=== PATIENT | male | born 1990 | race Caucasian/White ===

== ENCOUNTER 2017-03-03 14:57 | Emergency (ER) | payer MEDICAID ==
[~2017-03-03] VITALS: Ht 172.7 cm; Wt 70.0 kg
[2017-03-03] MEDS ORDERED: SODIUM CHLORIDE 0.9% 1,000 ML IV ONE ×2 (15:24→21:30)
[2017-03-03] MEDS ORDERED: LORAZEPAM 2MG/ML CPJ IV STA (15:24)
[2017-03-03] MEDS ORDERED: DILTIAZEM HCL 5MG/ML 5ML VIAL IV ONE (15:30)
[2017-03-03 15:44] LABS: BASOPHILS % 0.2 % (0.0-2.0); EOSINOPHILS % 0.1 % (0.0-5.0); HEMATOCRIT. 43.7 % (42.0-52.0); LYMPHOCYTES % 20.2 % (20.0-50.0); MEAN CORPUSCULAR HEMOGLOBIN 30.9 pg (28.0-32.0); MEAN CORPUSCULAR VOLUME 89.7 fL (80.0-94.0); MEAN PLATELET VOLUME 7.2 fl (7.4-10.4); MONOCYTES % 7.9 % (2.0-8.0); NEUTROPHILS % 71.6 % (40.0-76.0); PLATELET 297 x1000/uL (130-400); RED BLOOD CELL COUNT 4.86 mill/uL (4.7-6.1); RED CELL DISTRIBUTION WIDTH 15.4 % (11.6-14.6)
[2017-03-03 15:49] LABS: CHLORIDE 96 mEq/L (98-107)
[2017-03-03 15:58] LABS: CARBON DIOXIDE 20 mEq/L (21-32); ETHANOL BLOOD < 10 mg/dL
[2017-03-03 16:54] LABS: CLARITY URINE CLEAR (CLEAR); COLOR URINE YELLOW (YELLOW); GLUCOSE URINE NEGATIVE (NEGATIVE); KETONES URINE TRACE (NEGATIVE); LEUKOCYTE ESTERASE URINE NEGATIVE (NEGATIVE); NITRITE URINE NEGATIVE (NEGATIVE); OCCULT BLOOD URINE NEGATIVE (NEGATIVE); PH URINE 8.5 (4.5-8.0); PROTEIN URINE NEGATIVE (NEGATIVE); SPECIFIC GRAVITY URINE 1.012 (1.005-1.030); UROBILINOGEN URINE 0.2 E.U./dL (0.2-1.0)
[2017-03-03 17:04] LABS: *AMPHETAMINES SCREEN URINE PRESUMTIVE POSITIVE (NEGATIVE); *BARBITURATES SCREEN URINE NEGATIVE (NEGATIVE); *BENZODIAZEPINES SCREEN URINE NEGATIVE (NEGATIVE); *COCAINE SCREEN URINE NEGATIVE (NEGATIVE); CANNABINOID URINE SCREEN NEGATIVE (NEGATIVE); METHADONE URINE SCREEN NEGATIVE (NEGATIVE); OPIATES URINE SCREEN NEGATIVE (NEGATIVE); PHENCYCLIDINE URINE SCREEN NEGATIVE (NEGATIVE)
[2017-03-03] MEDS ORDERED: POTASSIUM CHLORIDE 20MEQ TABLET SR PO ONE ×2 (17:15)
[2017-03-03 19:02] LABS: CARBON DIOXIDE 26 mEq/L (21-32); CHLORIDE 104 mEq/L (98-107)
[2017-03-03 22:42] VITALS: BP 138/78
== END 2017-03-03 22:44 | disposition home or self-care (01) ==
LOC: ER 15:17
DX: T43.625A Adverse effect of amphetamines, initial encounter (principal); Y92.9 Unspecified place or not applicable; F15.90 Other stimulant use, unspecified, uncomplicated; F41.9 Anxiety disorder, unspecified
CPT/HCPCS: 36415; 71010; 80048; 80053; 80305; 81003; 85025; 93005; 96361; 96374; 96375; 99285; G0482; J2060; J3490; J7030; Z7610

== ENCOUNTER 2017-04-05 05:27 | Emergency (ER) | payer MEDICAID ==
[~2017-04-05] VITALS: Ht 160 cm; Wt 59.0 kg
[2017-04-05 05:29] VITALS: BP 104/67
== END 2017-04-05 05:51 | disposition left against medical advice (07) ==
LOC: ER 05:29
DX: F10.129 Alcohol abuse with intoxication, unspecified (principal); Z53.21 Procedure and treatment not carried out due to patient leaving prior to being seen by health care provider

== ENCOUNTER 2017-04-20 20:11 | Emergency (ER) | payer MEDICAID ==
[~2017-04-20] VITALS: Ht 160 cm; Wt 65.0 kg
[2017-04-20 21:10] LABS: BASOPHILS % 0.2 % (0.0-2.0); EOSINOPHILS % 0.1 % (0.0-5.0); HEMATOCRIT. 42.6 % (42.0-52.0); HEMOGLOBIN. 14.3 g/dL (14.0-18.0); MEAN CORPUSCULAR HEMOGLOBIN 30.9 pg (28.0-32.0); MEAN PLATELET VOLUME 6.7 fl (7.4-10.4); MONOCYTES % 9.1 % (2.0-8.0); NEUTROPHILS % 79.6 % (40.0-76.0); PLATELET 203 x1000/uL (130-400); RED BLOOD CELL COUNT 4.63 mill/uL (4.7-6.1); RED CELL DISTRIBUTION WIDTH 15.4 % (11.6-14.6)
[2017-04-20 21:17] LABS: CHLORIDE 100 mEq/L (98-107)
[2017-04-20 21:21] LABS: CARBON DIOXIDE 28 mEq/L (21-32)
[2017-04-20 21:23] LABS: ETHANOL BLOOD < 10 mg/dL
[2017-04-20 21:25] LABS: *AMPHETAMINES SCREEN URINE NEGATIVE (NEGATIVE); *BARBITURATES SCREEN URINE NEGATIVE (NEGATIVE); *BENZODIAZEPINES SCREEN URINE NEGATIVE (NEGATIVE); *COCAINE SCREEN URINE NEGATIVE (NEGATIVE); CANNABINOID URINE SCREEN NEGATIVE (NEGATIVE); METHADONE URINE SCREEN NEGATIVE (NEGATIVE); OPIATES URINE SCREEN NEGATIVE (NEGATIVE); PHENCYCLIDINE URINE SCREEN NEGATIVE (NEGATIVE)
[2017-04-20] MEDS ORDERED: ACETAMINOPHEN 325MG TABLET PO ONE (22:45)
[2017-04-20 23:20] VITALS: BP 136/92
== END 2017-04-20 23:35 | disposition home or self-care (01) ==
LOC: ER 20:25
DX: R56.9 Unspecified convulsions (principal); R51 Headache; I10 Essential (primary) hypertension; F17.200 Nicotine dependence, unspecified, uncomplicated; F14.10 Cocaine abuse, uncomplicated; F15.10 Other stimulant abuse, uncomplicated
CPT/HCPCS: 36415; 70450; 80053; 80305; 85025; 99285; G0482; Z7610

== ENCOUNTER 2017-06-06 18:19 | Inpatient (IN) | payer MEDICAID ==
[~2017-06-06] VITALS: Ht 170.2 cm; Wt 49.6 kg
[2017-06-06] MEDS ORDERED: SODIUM CHLORIDE 0.9% 1000ML BAG (SEPSIS BOLUS) IV ONE (18:45)
[2017-06-06] MEDS ORDERED: LORAZEPAM 2MG/ML CPJ IV ONE (18:45)
[2017-06-06 19:19] LABS: BASOPHILS % 0.4 % (0.0-2.0); EOSINOPHILS % 0.2 % (0.0-5.0); HEMATOCRIT. 45.8 % (42.0-52.0); HEMOGLOBIN. 16.2 g/dL (14.0-18.0); LYMPHOCYTES % 15.8 % (20.0-50.0); MEAN CORPUSCULAR HEMOGLOBIN 31.7 pg (28.0-32.0); MEAN CORPUSCULAR VOLUME 89.7 fL (80.0-94.0); MEAN PLATELET VOLUME 7.3 fl (7.4-10.4); MONOCYTES % 9.6 % (2.0-8.0); PLATELET 216 x1000/uL (130-400); RED BLOOD CELL COUNT 5.11 mill/uL (4.7-6.1); RED CELL DISTRIBUTION WIDTH 13.5 % (11.6-14.6)
[2017-06-06 19:23] LABS: INR 1.2
[2017-06-06 19:36] LABS: CHLORIDE 97 mEq/L (98-107); ETHANOL BLOOD < 10 mg/dL; TROPONIN I < 0.02 ng/mL (0.00-0.04)
[2017-06-06 19:54] LABS: CLARITY URINE CLOUDY (CLEAR); COLOR URINE YELLOW (YELLOW); KETONES URINE 2+ (NEGATIVE); LEUKOCYTE ESTERASE URINE TRACE (NEGATIVE); NITRITE URINE NEGATIVE (NEGATIVE); OCCULT BLOOD URINE NEGATIVE (NEGATIVE); PH URINE >=9.0 (4.5-8.0); PROTEIN URINE NEGATIVE (NEGATIVE); SPECIFIC GRAVITY URINE 1.016 (1.005-1.030)
[2017-06-06 20:13] LABS: *AMPHETAMINES SCREEN URINE PRESUMTIVE POSITIVE (NEGATIVE); *BARBITURATES SCREEN URINE NEGATIVE (NEGATIVE); *BENZODIAZEPINES SCREEN URINE NEGATIVE (NEGATIVE); *COCAINE SCREEN URINE NEGATIVE (NEGATIVE); CANNABINOID URINE SCREEN NEGATIVE (NEGATIVE); METHADONE URINE SCREEN NEGATIVE (NEGATIVE); OPIATES URINE SCREEN NEGATIVE (NEGATIVE); PHENCYCLIDINE URINE SCREEN NEGATIVE (NEGATIVE)
[2017-06-06] MEDS ORDERED: LEVETIRACETAM 1000MG/100ML 100 ML IV ONE (20:45)
[2017-06-06] MEDS ORDERED: HYDRALAZINE 20MG/ML VIAL IV ONE (22:15)
[2017-06-06] MEDS ORDERED: NICARDIPINE 40MG/200ML PREMIX 200 ML IV ONE (23:02)
[2017-06-06] MEDS ORDERED: LORAZEPAM 2MG/ML CPJ IV PRN (23:15)
[2017-06-06] MEDS ORDERED: CLONIDINE 0.1MG TABLET PO PRN (23:15)
[2017-06-06] MEDS ORDERED: IPRATROPIUM/ALBUTEROL 0.5-3(2.5)MG/3ML NEB INH PRN (23:15)
[2017-06-06] MEDS ORDERED: MAGNESIUM/ALUMINUM HYDROXIDE/SIMETHICONE 30ML UDC PO PRN (23:15)
[2017-06-06] MEDS ORDERED: HYDROCODONE/ACETAMINOPHEN 5/325MG TABLET PO PRN (23:15)
[2017-06-06] MEDS ORDERED: ACETAMINOPHEN 325MG TABLET PO PRN (23:15)
[2017-06-06] MEDS ORDERED: ONDANSETRON HCL 4MG/2ML VIAL IV PRN (23:15)
[2017-06-06] MEDS ORDERED: DOCUSATE SODIUM 100MG CAPSULE PO PRN (23:15)
[2017-06-06 23:55] LABS: CHLORIDE 102 mEq/L (98-107)
[2017-06-07] VITALS (22 sets, daily range): BP systolic 60–171; BP diastolic 19–123
[2017-06-07] MEDS ORDERED: TRAZ-129 PO (01:22)
[2017-06-07] MEDS ORDERED: GABA-531 PO (01:22)
[2017-06-07] MEDS ORDERED: LEVE500T19 PO (01:22)
[2017-06-07] MEDS ORDERED: TRAZODONE HCL 50MG TABLET PO PRN (03:30)
[2017-06-07 05:47] LABS: BASOPHILS % 0.2 % (0.0-2.0); EOSINOPHILS % 0.3 % (0.0-5.0); HEMATOCRIT. 41.8 % (42.0-52.0); HEMOGLOBIN. 14.5 g/dL (14.0-18.0); LYMPHOCYTES % 18.1 % (20.0-50.0); MEAN CORPUSCULAR HEMOGLOBIN 31.2 pg (28.0-32.0); MEAN CORPUSCULAR VOLUME 90.1 fL (80.0-94.0); MEAN PLATELET VOLUME 7.5 fl (7.4-10.4); MONOCYTES % 9.8 % (2.0-8.0); NEUTROPHILS % 71.6 % (40.0-76.0); PLATELET 181 x1000/uL (130-400); RED BLOOD CELL COUNT 4.64 mill/uL (4.7-6.1); RED CELL DISTRIBUTION WIDTH 13.9 % (11.6-14.6)
[2017-06-07 06:24] LABS: CREATINE KINASE MB FRACTION 2.6 ng/mL (0.5-3.6)
[2017-06-07] MEDS ORDERED: GABAPENTIN 300MG CAPSULE PO SCH (09:00)
[2017-06-07] MEDS ORDERED: LEVETIRACETAM 500MG TABLET PO SCH (09:00)
[2017-06-07] MEDS ORDERED: BUDESONIDE 0.5MG/2ML NEB HHN SCH (09:00)
[2017-06-07] MEDS ORDERED: LEVETIRACETAM 500MG/5ML CUP PO SCH (09:00)
[2017-06-07] MEDS ORDERED: AMLO5TAB88 PO (12:45)
[2017-06-08] MEDS ORDERED: AMLODIPINE 5MG TABLET PO SCH (09:00)
== END 2017-06-07 12:40 | disposition home or self-care (01) | DRG 812 ==
LOC: ER 18:33 → MICUNO 18:34 → EDBEDREQTM 22:21 → EDBEDREQSVC 22:21 → EDBEDREQ 22:21 → ENRESERV 22:39 → EDBEDREQ 23:10 → EDBEDREQTM 23:10 → EDBEDREQSVC 23:10 → ENRESERV 23:19 → MICUNO 06-07 00:50
PROVIDERS: ADMIT Internal Medicine; ATTEND Internal Medicine
DX: T43.621A Poisoning by amphetamines, accidental (unintentional), initial encounter (principal); R65.10 Systemic inflammatory response syndrome (SIRS) of non-infectious origin without acute organ dysfunction; I10 Essential (primary) hypertension; F17.210 Nicotine dependence, cigarettes, uncomplicated; G40.909 Epilepsy, unspecified, not intractable, without status epilepticus; F19.10 Other psychoactive substance abuse, uncomplicated; Z87.820 Personal history of traumatic brain injury; Z79.899 Other long term (current) drug therapy; Y92.89 Other specified places as the place of occurrence of the external cause; R73.9 Hyperglycemia, unspecified
CPT/HCPCS: 36415; 70450; 71045; 80048; 80053; 80061; 80305; 81001; 82550; 82553; 83605; 83690; 83880; 84443; 84484; 85025; 85610; 87040; 87086; 93005; 93970; 94640; 96361; 96365; 96375; 99291; G0482; J0360; J1953; J2060; J7030; J7620; J7626

== ENCOUNTER 2017-11-24 23:07 | Emergency (ER) | payer MEDICAID ==
[~2017-11-24] VITALS: Ht 160 cm; Wt 59.0 kg
[~2017-11-24 23:07] MED LIST: AMLO5TAB88 PO; GABA-531 PO; LEVE500T19 PO; TRAZ-212 PO
[2017-11-25 00:01] VITALS: BP 157/86
== END 2017-11-25 06:14 | disposition left against medical advice (07) ==
LOC: ER 23:07
DX: Z53.21 Procedure and treatment not carried out due to patient leaving prior to being seen by health care provider (principal)

== ENCOUNTER 2017-11-29 19:01 | Emergency (ER) | payer MEDICAID ==
[~2017-11-29] VITALS: Ht 162.6 cm; Wt 59.0 kg
[2017-11-29 20:14] VITALS: BP 127/74
== END 2017-11-29 21:41 | disposition left against medical advice (07) ==
LOC: ER 19:01
DX: S61.012A Laceration without foreign body of left thumb without damage to nail, initial encounter (principal); X58.XXXA Exposure to other specified factors, initial encounter; Y93.89 Activity, other specified; Y92.89 Other specified places as the place of occurrence of the external cause; Y99.8 Other external cause status; Z53.21 Procedure and treatment not carried out due to patient leaving prior to being seen by health care provider

== ENCOUNTER 2018-06-23 14:59 | Emergency (ER) | payer MEDICAID ==
[~2018-06-23] VITALS: Ht 162.6 cm; Wt 55.0 kg
[2018-06-23 17:40] VITALS: BP 127/89
== END 2018-06-23 23:50 | disposition left against medical advice (07) ==
LOC: ER 14:59
DX: Z53.21 Procedure and treatment not carried out due to patient leaving prior to being seen by health care provider (principal)

== ENCOUNTER 2018-06-29 10:20 | Emergency (ER) | payer MEDICAID ==
[~2018-06-29] VITALS: Ht 172.7 cm; Wt 70.0 kg
[2018-06-29 11:34] LABS: BASOPHILS % 0.3 % (0.0-2.0); EOSINOPHILS % 0.7 % (0.0-5.0); HEMATOCRIT. 45.9 % (42.0-52.0); HEMOGLOBIN. 15.9 g/dL (14.0-18.0); LYMPHOCYTES % 14.3 % (20.0-50.0); MEAN CORPUSCULAR HEMOGLOBIN 32.4 pg (28.0-32.0); MEAN CORPUSCULAR VOLUME 93.7 fL (80.0-94.0); MEAN PLATELET VOLUME 7.4 fl (7.4-10.4); MONOCYTES % 9.6 % (2.0-8.0); NEUTROPHILS % 75.1 % (40.0-76.0); PLATELET 234 x1000/uL (130-400); RED BLOOD CELL COUNT 4.89 mill/uL (4.7-6.1)
[2018-06-29 11:38] LABS: CHLORIDE 104 mEq/L (98-107)
[2018-06-29 11:42] LABS: ETHANOL BLOOD < 10 mg/dL
[2018-06-29 11:44] LABS: PHOSPHORUS 2.3 mg/dL (2.5-4.9)
[2018-06-29] MEDS ORDERED: ONDANSETRON HCL 4MG/2ML INJ IV ONE (11:45)
[2018-06-29] MEDS ORDERED: ACETAMINOPHEN 325MG TABLET PO ONE (11:45)
[2018-06-29] MEDS ORDERED: GABAPENTIN 300MG CAPSULE PO ONE (12:30)
[2018-06-29] MEDS ORDERED: LEVETIRACETAM 1000MG/100ML 100 ML IV ONE (12:30)
[2018-06-29 12:40] LABS: CLARITY URINE CLEAR (CLEAR); COLOR URINE YELLOW (YELLOW); KETONES URINE TRACE (NEGATIVE); LEUKOCYTE ESTERASE URINE TRACE (NEGATIVE); NITRITE URINE NEGATIVE (NEGATIVE); OCCULT BLOOD URINE TRACE (NEGATIVE); PROTEIN URINE 1+ (NEGATIVE); SPECIFIC GRAVITY URINE 1.018 (1.005-1.030); UROBILINOGEN URINE 0.2 E.U./dL (0.2-1.0)
[2018-06-29 13:05] LABS: *AMPHETAMINES SCREEN URINE NEGATIVE (NEGATIVE); *BARBITURATES SCREEN URINE NEGATIVE (NEGATIVE); *BENZODIAZEPINES SCREEN URINE NEGATIVE (NEGATIVE); *COCAINE SCREEN URINE NEGATIVE (NEGATIVE)
[2018-06-29 13:06] LABS: CANNABINOID URINE SCREEN NEGATIVE (NEGATIVE); METHADONE URINE SCREEN NEGATIVE (NEGATIVE); OPIATES URINE SCREEN NEGATIVE (NEGATIVE); PHENCYCLIDINE URINE SCREEN NEGATIVE (NEGATIVE)
[2018-06-29 15:25] VITALS: BP 117/87
== END 2018-06-29 15:43 | disposition home or self-care (01) ==
LOC: ER 10:27
DX: R56.9 Unspecified convulsions (principal)
CPT/HCPCS: 36415; 70450; 80053; 80305; 80320; 81003; 82962; 83735; 84100; 85025; 87086; 96365; 96375; 99284; J1953; J2405; G0480

== ENCOUNTER 2019-11-27 20:52 | Emergency (ER) | payer MEDICAID ==
[~2019-11-27] VITALS: Ht 165.1 cm; Wt 70.0 kg
[~2019-11-27 20:52] MED LIST changes: -TRAZ-212 PO; +TRAZ-251 PO
[2019-11-27 20:56] VITALS: BP 100/70
[2019-11-27] MEDS ORDERED: LORAZEPAM 2MG/ML CPJ IV ONE (21:30)
[2019-11-27] MEDS ORDERED: LEVETIRACETAM 1000MG/100ML 100 ML IV ONE (21:30)
[2019-11-27 21:35] LABS: BASOPHILS % 0.2 % (0.0-2.0); EOSINOPHILS % 0.3 % (0.0-5.0); HEMATOCRIT. 44.6 % (42.0-52.0); HEMOGLOBIN. 15.6 g/dL (14.0-18.0); MEAN CORPUSCULAR VOLUME 94.5 fL (80.0-94.0); MEAN PLATELET VOLUME 6.3 fl (7.4-10.4); NEUTROPHILS % 68.5 % (40.0-76.0); PLATELET 249 x1000/uL (130-400); RED BLOOD CELL COUNT 4.72 mill/uL (4.7-6.1); RED CELL DISTRIBUTION WIDTH 13.3 % (11.6-14.6)
[2019-11-27 21:40] LABS: CHLORIDE 104 mEq/L (98-107)
[2019-11-27 21:45] LABS: ETHANOL BLOOD 277 mg/dL
== END 2019-11-27 22:30 | disposition left against medical advice (07) ==
LOC: ER 20:52
DX: R56.9 Unspecified convulsions (principal); F10.129 Alcohol abuse with intoxication, unspecified; Z79.899 Other long term (current) drug therapy; Z98.890 Other specified postprocedural states; Y90.8 Blood alcohol level of 240 mg/100 ml or more
CPT/HCPCS: 36415; 80053; 80305; 80320; 81003; 85025; 93005; 99284; G0480

== ENCOUNTER 2020-03-15 19:55 | Emergency (ER) | payer MEDICAID ==
[~2020-03-15] VITALS: Ht 160 cm; Wt 75.0 kg
[2020-03-15] MEDS ORDERED: SODIUM CHLORIDE 0.9% 1,000 ML IV ONE (22:45)
[2020-03-15 23:53] LABS: BASOPHILS % 0.3 % (0.0-2.0); EOSINOPHILS % 0.6 % (0.0-5.0); HEMATOCRIT. 37.4 % (42.0-52.0); HEMOGLOBIN. 12.7 g/dL (14.0-18.0); LYMPHOCYTES % 14.3 % (20.0-50.0); MEAN CORPUSCULAR HEMOGLOBIN 31.4 pg (28.0-32.0); MEAN CORPUSCULAR VOLUME 92.3 fL (80.0-94.0); MEAN PLATELET VOLUME 6.8 fl (7.4-10.4); MONOCYTES % 8.5 % (2.0-8.0); NEUTROPHILS % 76.3 % (40.0-76.0); PLATELET 227 x1000/uL (130-400); RED BLOOD CELL COUNT 4.05 mill/uL (4.7-6.1); RED CELL DISTRIBUTION WIDTH 12.7 % (11.6-14.6)
[2020-03-16 00:01] LABS: CHLORIDE 107 mEq/L (98-107)
[2020-03-16 00:06] LABS: ETHANOL BLOOD < 10 mg/dL
[2020-03-16 00:10] LABS: CREATINE KINASE 114 IU/L (39-308)
[2020-03-16 00:29] LABS: CARBAMAZEPINE < 0.5 ug/mL (4-12); PHENOBARBITAL < 2.1 ug/mL (15.0-40.0); VALPROIC ACID < 3.0 ug/mL (50-100)
[2020-03-16 02:18] LABS: CLARITY URINE CLEAR (CLEAR); COLOR URINE YELLOW (YELLOW); KETONES URINE TRACE (NEGATIVE); LEUKOCYTE ESTERASE URINE NEGATIVE (NEGATIVE); NITRITE URINE NEGATIVE (NEGATIVE); OCCULT BLOOD URINE NEGATIVE (NEGATIVE); PROTEIN URINE TRACE (NEGATIVE); SPECIFIC GRAVITY URINE 1.023 (1.005-1.030)
[2020-03-16 02:27] LABS: *AMPHETAMINES SCREEN URINE NEGATIVE (NEGATIVE); *BARBITURATES SCREEN URINE NEGATIVE (NEGATIVE); *BENZODIAZEPINES SCREEN URINE NEGATIVE (NEGATIVE); *COCAINE SCREEN URINE NEGATIVE (NEGATIVE); CANNABINOID URINE SCREEN PRESUMTIVE POSITIVE (NEGATIVE); METHADONE URINE SCREEN NEGATIVE (NEGATIVE); OPIATES URINE SCREEN NEGATIVE (NEGATIVE); PHENCYCLIDINE URINE SCREEN NEGATIVE (NEGATIVE)
[2020-03-16 02:33] VITALS: BP 117/74
[2020-03-16] MEDS ORDERED: LEVETIRACETAM 500MG TABLET PO SCH (09:00)
== END 2020-03-16 02:37 | disposition home or self-care (01) ==
LOC: ER 19:55
DX: R56.9 Unspecified convulsions (principal); Z91.14 Patient's other noncompliance with medication regimen; Z98.890 Other specified postprocedural states
CPT/HCPCS: 36415; 70450; 71045; 80053; 80156; 80165; 80184; 80185; 80305; 80320; 81003; 82140; 82550; 82962; 83605; 83690; 84443; 84484; 85025; 86850; 86900; 86901; 93005; 99285; J7030; G0480

== ENCOUNTER 2020-11-22 07:51 | Emergency (ER) | payer MEDICAID ==
[~2020-11-22] VITALS: Ht 167.6 cm; Wt 55.0 kg
[~2020-11-22 07:51] MED LIST changes: -GABA-531 PO; +GABA-532 PO
[2020-11-22] MEDS ORDERED: LORAZEPAM 2MG/ML CPJ IV ONE (08:15)
[2020-11-22] MEDS ORDERED: SODIUM CHLORIDE 0.9% 1,000 ML IV ONE (08:15)
[2020-11-22] MEDS ORDERED: LEVETIRACETAM 500MG TABLET PO ONE (08:15)
[2020-11-22] MEDS ORDERED: ACETAMINOPHEN 325MG TABLET PO SCH (08:30)
[2020-11-22 09:57] LABS: BASOPHILS % 0.2 % (0.0-2.0); EOSINOPHILS % 0.1 % (0.0-5.0); HEMATOCRIT. 36.6 % (42.0-52.0); HEMOGLOBIN. 12.2 g/dL (14.0-18.0); LYMPHOCYTES % 10.5 % (20.0-50.0); MEAN CORPUSCULAR HEMOGLOBIN 30.6 pg (28.0-32.0); MEAN CORPUSCULAR VOLUME 91.7 fL (80.0-94.0); MEAN PLATELET VOLUME 7.2 fl (7.4-10.4); MONOCYTES % 6.8 % (2.0-8.0); NEUTROPHILS % 82.4 % (40.0-76.0); PLATELET 218 x1000/uL (130-400); RED BLOOD CELL COUNT 3.99 mill/uL (4.7-6.1); RED CELL DISTRIBUTION WIDTH 15.2 % (11.6-14.6)
[2020-11-22 10:02] LABS: CLARITY URINE CLEAR (CLEAR); COLOR URINE YELLOW (YELLOW); KETONES URINE NEGATIVE (NEGATIVE); LEUKOCYTE ESTERASE URINE NEGATIVE (NEGATIVE); NITRITE URINE NEGATIVE (NEGATIVE); OCCULT BLOOD URINE NEGATIVE (NEGATIVE); PROTEIN URINE NEGATIVE (NEGATIVE); SPECIFIC GRAVITY URINE 1.011 (1.005-1.030)
[2020-11-22 10:05] LABS: CHLORIDE 110 mEq/L (98-107)
[2020-11-22 10:09] LABS: ETHANOL BLOOD < 10 mg/dL
[2020-11-22 10:47] LABS: METHADONE URINE SCREEN NEGATIVE (NEGATIVE); OPIATES URINE SCREEN NEGATIVE (NEGATIVE)
[2020-11-22 10:48] LABS: *AMPHETAMINES SCREEN URINE NEGATIVE (NEGATIVE); *BARBITURATES SCREEN URINE NEGATIVE (NEGATIVE); *BENZODIAZEPINES SCREEN URINE NEGATIVE (NEGATIVE); *COCAINE SCREEN URINE NEGATIVE (NEGATIVE); CANNABINOID URINE SCREEN PRESUMTIVE POSITIVE (NEGATIVE); PHENCYCLIDINE URINE SCREEN NEGATIVE (NEGATIVE)
[2020-11-22] MEDS ORDERED: KEPP500 MT (11:32)
[2020-11-22 13:59] VITALS: BP 128/83
== END 2020-11-22 14:23 | disposition home or self-care (01) ==
LOC: ER 08:14
DX: R51.9 Headache, unspecified (principal); F17.200 Nicotine dependence, unspecified, uncomplicated; F12.10 Cannabis abuse, uncomplicated; Z13.9 Encounter for screening, unspecified; Z98.890 Other specified postprocedural states; Z91.14 Patient's other noncompliance with medication regimen
CPT/HCPCS: 36415; 71045; 80053; 80305; 80320; 81003; 82962; 85025; 96361; 96374; 99284; J2060; J7030; G0480

== ENCOUNTER 2020-12-24 16:37 | Emergency (ER) | payer MEDICAID ==
[~2020-12-24] VITALS: Ht 167.6 cm; Wt 70.0 kg
[~2020-12-24 16:37] MED LIST changes: +KEPP500 MT
[2020-12-24] MEDS ORDERED: TETANUS, DIPHTHERIA, PERTUSSIS VAC/PF 0.5ML (>7YR OLD) IM ONE (17:00)
[2020-12-24 17:32] LABS: BASOPHILS % 0.3 % (0.0-2.0); EOSINOPHILS % 0.1 % (0.0-5.0); HEMATOCRIT. 37.7 % (42.0-52.0); HEMOGLOBIN. 12.9 g/dL (14.0-18.0); LYMPHOCYTES % 12.9 % (20.0-50.0); MEAN CORPUSCULAR HEMOGLOBIN 31.7 pg (28.0-32.0); MEAN CORPUSCULAR VOLUME 92.2 fL (80.0-94.0); MEAN PLATELET VOLUME 7.1 fl (7.4-10.4); MONOCYTES % 8.4 % (2.0-8.0); NEUTROPHILS % 78.3 % (40.0-76.0); PLATELET 237 x1000/uL (130-400); RED BLOOD CELL COUNT 4.08 mill/uL (4.7-6.1); RED CELL DISTRIBUTION WIDTH 14.5 % (11.6-14.6)
[2020-12-24 17:38] LABS: CHLORIDE 106 mEq/L (98-107)
[2020-12-24 18:08] LABS: ETHANOL BLOOD 303 mg/dL
[2020-12-24 19:37] LABS: *BENZODIAZEPINES SCREEN URINE NEGATIVE (NEGATIVE); *COCAINE SCREEN URINE NEGATIVE (NEGATIVE); METHADONE URINE SCREEN NEGATIVE (NEGATIVE)
[2020-12-24 19:39] LABS: *AMPHETAMINES SCREEN URINE PRESUMTIVE POSITIVE (NEGATIVE); *BARBITURATES SCREEN URINE NEGATIVE (NEGATIVE); CANNABINOID URINE SCREEN PRESUMTIVE POSITIVE (NEGATIVE); OPIATES URINE SCREEN NEGATIVE (NEGATIVE); PHENCYCLIDINE URINE SCREEN NEGATIVE (NEGATIVE)
[2020-12-24 23:36] VITALS: BP 121/72
== END 2020-12-25 00:09 | disposition home or self-care (01) ==
LOC: ER 16:37
DX: M79.89 Other specified soft tissue disorders (principal); R51.9 Headache, unspecified; F12.10 Cannabis abuse, uncomplicated; Z98.890 Other specified postprocedural states; Z79.899 Other long term (current) drug therapy
CPT/HCPCS: 36415; 73080; 73090; 80048; 80305; 80320; 85025; 90471; 90715; 93971; 99285; G0480

== ENCOUNTER 2021-01-03 18:37 | Emergency (ER) | payer MEDICAID ==
[~2021-01-03] VITALS: Ht 162.6 cm; Wt 59.0 kg
[2021-01-03 23:27] VITALS: BP 133/56
[2021-01-04] MEDS ORDERED: KEPP500 PO (07:43)
== END 2021-01-03 23:33 | disposition home or self-care (01) ==
LOC: ER 18:37
DX: G92 Toxic encephalopathy (principal); T51.0X1A Toxic effect of ethanol, accidental (unintentional), initial encounter; F12.10 Cannabis abuse, uncomplicated; F14.10 Cocaine abuse, uncomplicated; F17.200 Nicotine dependence, unspecified, uncomplicated; Z86.59 Personal history of other mental and behavioral disorders; Z86.73 Personal history of transient ischemic attack (TIA), and cerebral infarction without residual deficits; Z98.890 Other specified postprocedural states; Y92.9 Unspecified place or not applicable
CPT/HCPCS: 82962; 99283

== ENCOUNTER 2021-01-04 07:24 | Emergency (ER) | payer MEDICAID ==
[~2021-01-04] VITALS: Ht 160 cm; Wt 60.0 kg
[2021-01-04 07:33] VITALS: BP 133/96
[2021-01-04] MEDS ORDERED: KEPP500 PO (07:43)
== END 2021-01-04 07:53 | disposition home or self-care (01) ==
LOC: ER 07:24
DX: Z76.0 Encounter for issue of repeat prescription (principal); G40.909 Epilepsy, unspecified, not intractable, without status epilepticus; G47.00 Insomnia, unspecified; Z86.73 Personal history of transient ischemic attack (TIA), and cerebral infarction without residual deficits; Z98.890 Other specified postprocedural states
CPT/HCPCS: 99281

== ENCOUNTER 2021-01-17 09:06 | Emergency (ER) | payer MEDICAID ==
[~2021-01-17] VITALS: Ht 165.1 cm; Wt 59.0 kg
[~2021-01-17 09:06] MED LIST changes: +KEPP500 PO
[2021-01-17 09:09] VITALS: BP 147/85
[2021-01-17] MEDS ORDERED: ACETAMINOPHEN 325MG TABLET PO ONE (09:30)
[2021-01-17] MEDS ORDERED: TOPUD PO (10:09)
== END 2021-01-17 10:41 | disposition home or self-care (01) ==
LOC: ER 09:06
DX: R51.9 Headache, unspecified (principal); F12.10 Cannabis abuse, uncomplicated; F14.10 Cocaine abuse, uncomplicated; Z98.890 Other specified postprocedural states; Z86.73 Personal history of transient ischemic attack (TIA), and cerebral infarction without residual deficits; Z86.59 Personal history of other mental and behavioral disorders
CPT/HCPCS: 99284

== ENCOUNTER 2021-01-20 15:58 | Emergency (ER) | payer MEDICAID ==
[~2021-01-20] VITALS: Ht 162.6 cm; Wt 56.0 kg
[~2021-01-20 15:58] MED LIST changes: +TOPUD PO
[2021-01-20] MEDS ORDERED: LEVETIRACETAM 500MG TABLET PO ONE (17:15)
[2021-01-20] MEDS ORDERED: LEVE500T19 MT (17:17)
[2021-01-20 17:20] VITALS: BP 102/56
== END 2021-01-20 18:21 | disposition home or self-care (01) ==
LOC: ER 15:58
DX: F10.129 Alcohol abuse with intoxication, unspecified (principal); F17.200 Nicotine dependence, unspecified, uncomplicated; F14.10 Cocaine abuse, uncomplicated; F12.10 Cannabis abuse, uncomplicated; Z91.14 Patient's other noncompliance with medication regimen; Z79.899 Other long term (current) drug therapy; Z86.73 Personal history of transient ischemic attack (TIA), and cerebral infarction without residual deficits; Z86.59 Personal history of other mental and behavioral disorders; Y90.9 Presence of alcohol in blood, level not specified
CPT/HCPCS: 99283

== ENCOUNTER 2021-03-13 11:32 | Emergency (ER) | payer MEDICAID ==
[~2021-03-13] VITALS: Ht 167.6 cm; Wt 59.0 kg
[~2021-03-13 11:32] MED LIST changes: +LEVE500T19 MT
[2021-03-13 11:35] VITALS: BP 125/70
[2021-03-13] MEDS ORDERED: ACETAMINOPHEN 325MG TABLET PO ONE (12:00)
[2021-03-13] MEDS ORDERED: LEVETIRACETAM 500MG TABLET PO ONE (12:00)
[2021-03-13] MEDS ORDERED: KEPP500 MT (13:56)
== END 2021-03-13 14:10 | disposition home or self-care (01) ==
LOC: ER 11:32
DX: R51.9 Headache, unspecified (principal); R56.9 Unspecified convulsions; F12.10 Cannabis abuse, uncomplicated; Z76.0 Encounter for issue of repeat prescription; Z79.899 Other long term (current) drug therapy
CPT/HCPCS: 93005; 99283

== ENCOUNTER 2021-05-18 17:25 | Emergency (ER) | payer MEDICAID ==
[~2021-05-18] VITALS: Ht 160 cm; Wt 59.0 kg
[2021-05-18 17:28] VITALS: BP 129/92
[2021-05-18] MEDS ORDERED: KEPP500 MT (17:57)
== END 2021-05-18 17:58 | disposition home or self-care (01) ==
LOC: ER 17:25
DX: G40.909 Epilepsy, unspecified, not intractable, without status epilepticus (principal); Z76.0 Encounter for issue of repeat prescription; G47.00 Insomnia, unspecified
CPT/HCPCS: 99281; Z7610